=== PATIENT | female | born 1935 | race Caucasian/White ===

== ENCOUNTER 2016-08-17 10:39 | Emergency (ER) | payer OTHER, BC ==
[~2016-08-17 10:39] MED LIST: ASPIRIN81 M1; ASPIRIN81 M2 PO; BORIC ACID; CALCIUM 600 MG1 TA3 PO; CALCIUM 600-D T1 TAB PO; CENTRUM SILVER PO; CENTRUM SILVER1 EAC1 PO; COLESTID PO; COZAAR25 MG PO; DIOVAN80 M1 PO; FLAGYL PO; HYDROCHLOROTH12.5 M1 PO; K-DUR10 MEQ PO; KCL PO; LASIX20 MG PO; LEVOTHROID112 MCG PO; NASONEB NASAL1 EACH; NASONEX17 GM; PREMARIN VAG CR45 GM VAG; PROAIR HFA8.5 GM; PROAIR HFA8.5 GM INH; SINGULAIR PO; SPIRIVA18 MCG INH; SYMBICORT80 INH; SYNTHROID112 MCG PO; SYNTHROID125 PO; [UNRECOGNIZED DRUG - OTHER]
[2016-08-17 12:06] LABS: URINE APPEARANCE CLOUDY; URINE BILIRUBIN NEG (NEG); URINE BLOOD 2+ (NEG); URINE COLOR YELLOW; URINE GLUCOSE NEG (NEG); URINE KETONE NEG (NEG); URINE LEUKOCYTE ESTERASE 3+ (NEG); URINE NITRATE NEG (NEG); URINE PROTEIN TRACE (NEG); URINE SPECIFIC GRAVITY 1.008 (1.003-1.035); URINE UROBILINOGEN 0.2 MG/DL (NEG)
[2016-08-17 12:08] LABS: CULTURE INDICATED? YES; URINE BACTERIA AUWI 2+ (NEGATIVE); URINE SQUAMOUS EPITHELIAL CELL NONE SEEN /[HPF]; UWBCS1 AUWI 200-300 (0-5)
[2016-08-17 12:11] LABS: URINE SOURCE CATH
== END 2016-08-17 12:41 | disposition home or self-care (01) ==
LOC: CED 10:39
PROVIDERS: Emergency Medicine
DX: N30.00 Acute cystitis without hematuria (principal); E03.9 Hypothyroidism, unspecified; J44.9 Chronic obstructive pulmonary disease, unspecified; I51.9 Heart disease, unspecified; Z79.82 Long term (current) use of aspirin; Z79.899 Other long term (current) drug therapy
CPT/HCPCS: 81003; 87086; 99283

== ENCOUNTER 2016-08-20 08:46 | Observation (INO) | payer MEDICARE, BC ==
--- NOTE | ~2016-08-20 | DS ---
Unit #: [id number] #: [id number] Patient: DAPHNEY HANCOCK [id number] [address] [address] [id number] I MR#: [id number] NAME: DAPHNEY HANCOCK. ROOM: 331 Age: 81 Sex: F Admission Date: 08/20/2016 : 1935 Discharge Date: 08/22/2016 Attending Physician: Jyoti Roman M.D. Primary Care Physician: Cintia Guy M.D. DISCHARGE SUMMARY DISCHARGE DIAGNOSES 1. Change in mental status secondary to toxic metabolic encephalopathy with urinary tract infection. Also, likely Alzheimer dementia. 2. Urinary tract infection. Culture shows contamination. 3. Hypokalemia. 4. Hypertension. 5. Chronic obstructive pulmonary disease, stable. 6. Obstructive sleep apnea. Not using CPAP. 7. Hypothyroidism. 8. History of mitral valve problems. 9. Glaucoma. 10. Likely Alzheimer dementia. 11. Mild hyponatremia secondary to hypovolemia. CONSULTANTS Dr. Calderon. PROCEDURES None. DIAGNOSTIC DATA IMAGING: Chest x-ray two views show no active disease. CT of the head shows no acute changes. Volume loss. Chronic small vessel disease present. LABORATORY: Urine culture is growing contamination only. Magnesium 1.9, vitamin B12 475, folate 23.2. Urine culture negative from 08/19/2016. ALLERGIES No known drug allergies. DISCHARGE MEDICATIONS 1. Tobramycin 3 drops t.i.d. 2. Dexamethasone 3 drops t.i.d. 3. Colestid 2 g in the morning at 9 o'clock. 4. Colestid 1 g in the evening. Home medication. 5. Estradiol applied vaginally Thursday, Thursday and Thursday and at bedtime. 6. Cozaar 50 mg p.o. daily. 7. Potassium 10 mEq p.o. b.i.d. 8. Synthroid 125 mcg p.o. daily. 9. Levaquin 500 mg p.o. daily for 3 days. Unit #: [id number] #: [id number] Patient: DAPHNEY HANCOCK HOSPITAL COURSE The patient is an 81-year-old admitted because of change in mental status. Change in mental status: Secondary to toxic metabolic encephalopathy from urinary tract infection. Also, the patient might likely have Alzheimer dementia and also from mild dehydration. Urinary tract infection: Started on Rocephin. The patient's culture shows contamination because of systemic involvement. I am going to give her antibiotic, Levaquin, for 3 days. She did receive Macrobid at home by her family doctor. Mild dehydration: The patient received IV fluids. Mild hypovolemic hyponatremia: Stable. Hypokalemia: Replaced with p.o. potassium. Continue potassium at home. Status post fall: The patient was seen by physical therapy and occupational therapy. They recommend rehab. exhibitions and collections manager has tried they denied her. Currently she is ambulating in the hallway. The patient will be discharged with home health and physical therapy at home. Hypothyroidism: Continue with home medications. Likely Alzheimer dementia: The patient was seen by Dr. Calderon. He recommended outpatient followup by primary care physician. DISPOSITION The patient will be discharged home with home health. FOLLOWUP Follow up with primary care physician in one week time for urinary tract infection and Alzheimer dementia. Dictated by... Kyung Hull/caleb TD: 08/22/2016 12:11 JOB #: [id number] CC: Cintia Guy M.D. DISCHARGE SUMMARY Page 1 of 1 X Jyoti Roman MD X DISCHARGE SUMMARY
--- NOTE | ~2016-08-20 | EKG ---
PATIENT: DAPHNEY HANCOCK UNIT #: [id number] Ventricular Rate: 73 BPM Atrial Rate: 73 BPM P-R Interval: 194 ms QRS Duration: 78 ms Q-T Interval: 390 ms QTC Calculation(Bezet): 429 ms P [place]: 65 degrees Calculated R [place]: -37 degrees Calculated T [place]: -19 degrees Diagnosis Line: Normal sinus rhythm with sinus arrhythmia Diagnosis Line: Left axis deviation Diagnosis Line: Low voltage QRS Diagnosis Line: Abnormal ECG Diagnosis Line: When compared with ECG of 19-APR-2013 20:47, Diagnosis Line: Nonspecific T wave abnormality no longer evident Diagnosis Line: in Anterior leads Diagnosis Line: Confirmed by ANABEL PERRY MD ([id number]) on Diagnosis Line: 08/20/2016 11:12:08 AM INTERPRETING : DOMINIQUE
--- NOTE | ~2016-08-20 | HP ---
Unit #: [id number] #: [id number] Patient: DAPHNEY HANCOCK [id number] [address] [address] [id number] I MR#: [id number] NAME: DAPHNEY HANCOCK. ROOM: 17301 Age: 81 Sex: F Admission Date: 08/20/2016 : 1935 Attending Physician: Jia Granados M.D. Primary Care Physician: Cintia Guy M.D. HISTORY AND PHYSICAL CHIEF COMPLAINT Altered mental status. HISTORY OF PRESENT ILLNESS Ms. Hancock is an 81-year-old white female with known COPD, obstructive sleep apnea, and hypertension, who presents with altered mental status. Patient states she is not sure why she is here. She was brought by her son for worsening confusion. Patient was apparently here on August 17 for evaluation of a urinary tract infection for which she was discharged home on Macrobid. However, the patient does not remember any of those events. The son states that she called him at 1 a.m., and he told her to go back to sleep. However, this morning he states that she normally calls him, but when she did not call, he went over to her house and found her laying on the floor. She is unsure the events from the overnight hours. She does not remember falling. Patient's son states that he did not see any bruises, and she did not complain of any pain when he found her. She is supposed to ambulate with the use of a walker which she states she has been doing. Patient currently lives alone. Patient currently has no complaints. She denies any chest pain or shortness of breath. She is wanting to go home and does not understand why she needs to stay. The son states that her only other change in her medications aside from the addition of Macrobid was that her Synthroid had been recently decreased by her primary care physician. PAST MEDICAL HISTORY 1. Hypertension. 2. Chronic obstructive pulmonary disease. 3. Obstructive sleep apnea for which she is not using her CPAP machine. 4. Hypothyroidism. 5. Mitral valve problems. 6. Glaucoma. 7. Cholecystectomy. 8. Bilateral hernia repair. 9. Left total knee done in 2009. 10. Skin graft to a rectal ulcer. 11. Tubes placed in her ears. 12. Tonsillectomy. 13. Right breast biopsy. ALLERGIES Amoxicillin causes nausea. MEDICATIONS Unit #: [id number] #: [id number] Patient: DAPHNEY HANCOCK 1. Dexamethasone eyedrops 3 times daily. 2. Tobramycin eyedrops 3 drops 3 times daily. 3. Synthroid 125 mcg p.o. daily. 4. Cozaar 50 mg p.o. daily. 5. Potassium chloride 10 mEq p.o. b.i.d. 6. Lasix 20 mg p.o. b.i.d. 7. Estrace vaginally Thursday/Thursday/Thursday. 8. She recently was started on Macrobid for a presumed urinary tract infection. FAMILY HISTORY None per the son. SOCIAL HISTORY She lives alone. No tobacco, alcohol, or drug use. REVIEW OF SYSTEMS CONSTITUTIONAL: She denies any fevers, chills, nausea, or vomiting. HEENT: She denies any current blurry vision, though she wears eyeglasses. She currently does not have her hearing aids in and does have some hearing difficulties. No dysphagia or rhinorrhea. PULMONARY: She denies any dyspnea. No hemoptysis or cough. CARDIOVASCULAR: No chest pain or palpitations. She denies any swelling in her lower extremities. GASTROINTESTINAL: No problems with her bowels. No bleeding from her rectum. GENITOURINARY: No dysuria or hematuria. MUSCULOSKELETAL: Again, she uses a walker to ambulate. ENDOCRINE: She does have thyroid issues with hypothyroidism but no known diabetes and no adrenal abnormalities. HEMATOLOGIC: No known bleeding or bruising abnormalities. NEUROLOGIC: No previously diagnosed neurologic issues including no seizure disorder. She has no one-sided weakness. PHYSICAL EXAMINATION VITAL SIGNS: Temperature is 97.8, pulse is 74, respiratory rate is 16, blood pressure is 102/68, and she is 99% on room air. GENERAL APPEARANCE: She is an 81-year-old white female who is awake. She is alert and answers my questions appropriately. She is in no acute distress. HEENT: Normocephalic and atraumatic. Equal ocular movements are intact. Pupils are equal, round, and reactive to light and accommodation. She is wearing eyeglasses. She has dry mucous membranes. NECK: Supple. No JVD or bruits. CHEST: Clear to auscultation bilaterally with no wheezes, rhonchi, or crackles. CARDIOVASCULAR: S1 and S2 is normal. She has a regular rate and rhythm. ABDOMEN: Soft, nontender, and nondistended, with positive bowel sounds. EXTREMITIES: She has 1+ edema. MUSCULOSKELETAL: She moves all four extremities without difficulty. She has equal tank filler strength. NEUROLOGICALLY: She is actually oriented to person and place. She is oriented to the date and to the day of the week. However, she is not oriented to year. Again, she follows commands. Her sensory and motor appear to be intact. SKIN: She has no visible rashes or lesions. DIAGNOSTIC STUDIES Unit #: [id number] #: [id number] Patient: DAPHNEY HANCOCK LABORATORY: Sodium 133, potassium 3.6, chloride 102, bicarb 28, BUN and creatinine 15 and 0.9, glucose 95, calcium 9.3, total protein 6.5, albumin 4, total bilirubin 0.7, AST 24, ALT 16, and alkaline phosphatase is 43. White blood cell count is 6, hemoglobin and hematocrit 11.6 and 35.9, platelet count 246,000 neutrophils 70, and lymphocytes are 18%. Of note, she did have a urinalysis from August 17 that showed 3+ leukocyte esterase, trace protein, 0.2 urobilinogen, 2+ blood, and 200-300 whites; however, the culture from that was negative. IMAGING: She had a head CT done today that showed small vessel changes but no acute abnormalities. IMPRESSION Ms. Hancock is an 81-year-old white female with chronic obstructive pulmonary disease, hypertension, and obstructive sleep apnea, who presents with altered mental status. PLAN 1. Altered mental status: This could be due to acute metabolic encephalopathy from mild dehydration and her recent urinary tract infection. However, more likely, patient has undiagnosed dementia that is worsening. The family is requesting neurologic evaluation, and I have spoken to the neurology nurse practitioner regarding this case. I did advise the family that during this observation period, we can only rule out causes that are reversible, and that we may not be able to fully establish that she has dementia prior to her discharge. At this point, will go ahead and check labs. Will recheck her urinalysis and go ahead and check a chest x-ray, though she is not having any pulmonary issues at this time just to make sure she does not have any underlying infection. Will also await Neurology's evaluation. 2. Recent urinary tract infection: Again, will recheck her urinalysis and send for culture if necessary. She has taken a three-day course of Macrobid for a presumed urinary tract infection, though her urine culture from August 17 was negative. 3. Status post fall: Will have Physical Therapy and Occupational Therapy evaluate her. 4. Chronic obstructive pulmonary disease: Will continue to monitor. Will start nebulizers. She is not having any active pulmonary issues at this present time. However, given her altered mental status, will go ahead and check a chest x-ray. 5. Hypothyroidism: Will continue her home medication and check her TSH. 6. Hypertension: Will continue her home medications. 7. Hyponatremia: This could be due to mild dehydration. Will gently hydrate for now. 8. Code status: The patient is unsure what her code status is. Therefore, at this time, until they can clarify, the patient is a Full Code. 1. Dictated by Kyung Dahl TD: 08/20/2016 14:06 JOB #: [id number] Unit #: [id number] #: [id number] Patient: DAPHNEY HANCOCK HISTORY AND PHYSICAL Page 1 of 1 X Jia Granados X HISTORY AND PHYSICAL
--- NOTE | ~2016-08-20 | DS ---
Unit #: [id number] #: [id number] Patient: DAPHNEY HANCOCK [id number] [address] [address] [id number] I MR#: [id number] NAME: DAPHNEY HANCOCK ROOM: 331 Age: 81 Sex: F Admission Date: 08/20/2016 : 1935 Discharge Date: 08/22/2016 Attending Physician: Jyoti Roman M.D. Primary Care Physician: Cintia Guy M.D. DISCHARGE SUMMARY ADDENDUM I discussed with the patient case coordinator. According to her, the patient has skilled rehab bed at [facility], so the patient will be discharged to rehab. The son wants her to go to rehab. Dictated by... Kyung Hull/caleb TD: 08/22/2016 15:00 JOB #: [id number] CC: Cintia Guy M.D. DISCHARGE SUMMARY Page 1 of 1 X Jyoti Roman MD X DISCHARGE SUMMARY
--- NOTE | ~2016-08-20 | CT71 ---
[facility] A Service of [facility] RADIOLOGY TEXT RESULTS PATIENT: DAPHNEY HANCOCK LOCATION: [facility] 331-01 : [birth year] UNIT #: [id number] AGE: [address]: Jyoti Roman MD SEX: F ORDER DR: [id number] [facility] [address] [facility]. [place], [place] [address] [id number] MR#: [id number] Acc #: [id number] NAME: DAPHNEY HANCOCK. : 1935 SEX: F STUDY DATE/TIME: 08/20/2016 9:46 UNIT: DIPAK ROOM: STUDY DESCRIPTION: CT Head Wo Contrast Attending Physician: Reggie Kent Ordering Physician: Chico Moreno M.D. Primary Care Physician: Cintia Guy M.D. MEDICAL IMAGING REPORT This report is preliminary unless electronic signature is present EXAM Head CT no contrast 08/20/2016 PROCEDURE Axial unenhanced head CT. This CT exam was performed with one or more of the following radiation dose reduction techniques: automatic exposure control, adjustment of mA and/or kV according to patient size, and iterative reconstruction. COMPARISON Brain MRI dated 12/06/2013 HISTORY Three-day history of disorientation and worsening confusion. FINDINGS There is no intracranial hemorrhage or mass. There is volume loss but no hydrocephalus or extraaxial fluid collection and there is mild nonspecific white matter change. There are intracranial atherosclerotic vascular calcifications and there has been left mastoidectomy, but the skull base and calvarium are otherwise normal. IMPRESSION 1. Volume loss and small vessel change and not exceptional for age, no convincing acute abnormality. 2. Prior left mastoidectomy. Dictated by... Roshan Ohara M.D. THIS IS AN ELECTRONICALLY VERIFIED REPORT Roshan Ohara M.D. at 08/22/2016 5:32 PM TEV/to [facility] A Service of [facility] RADIOLOGY TEXT RESULTS PATIENT: DAPHNEY HANCOCK LOCATION: [facility] 331- : 33 UNIT #: [id number] AGE: [address]: Jyoti Roman MD SEX: F ORDER DR: TD: 08/20/2016 11:35 JOB #: [id number] MEDICAL IMAGING REPORT Page 1 of 1 COPY
--- NOTE | ~2016-08-20 | CR63 ---
[facility] A Service of [facility] RADIOLOGY TEXT RESULTS PATIENT: DAPHNEY HANCOCK LOCATION: [facility] 331- : 33 UNIT #: [id number] AGE: [address]: Jyoti Roman MD SEX: F ORDER DR: [id number] [facility] [address] [facility] [place], [place] [address] [id number] I MR#: [id number] Acc #: [id number] NAME: DAPHNEY HANCOCK. : 1935 SEX: F STUDY DATE/TIME: 08/20/2016 16:27 UNIT: [address] ROOM: [facility] STUDY DESCRIPTION: CR Chest 2 View Attending Physician: Jia Granados M.D. Ordering Physician: Jia Granados M.D. Primary Care Physician: Cintia Guy M.D. MEDICAL IMAGING REPORT This report is preliminary unless electronic signature is present EXAM AP lateral chest INDICATIONS Altered mental status, shortness of breath and weakness for 3 days. COMPARISON 06/02/2014 FINDINGS There is no acute infiltrate. There is minimal linear atelectasis or scar in the left mid zone. Heart size upper normal. Atherosclerotic calcification aorta. There is a old chronic compression deformity of a lower thoracic vertebral body. IMPRESSION No active disease. Dictated by... Adam Cheng M.D. THIS IS AN ELECTRONICALLY VERIFIED REPORT Adam Cheng M.D. at 08/21/2016 7:24 PM ARS/gena TD: 08/20/2016 18:45 JOB #: [id number] MEDICAL IMAGING REPORT Page 1 of 1 COPY
--- NOTE | ~2016-08-20 | CO ---
Unit #: [id number] #: [id number] Patient: DAPHNEY HANCOCK [id number] [facility] [address] [facility]. [place], [place] [address] [id number] Alon MR#: [id number] NAME: DAPHNEY HANCOCK. ROOM: 331 Age: 81 Sex: F Admission Date: 08/20/2016 : 1935 Attending Physician: Jyoti Roman M.D. Primary Care Physician: Cintia Guy M.D. Consultation Date: 08/20/2016 CONSULTATION REPORT PRIMARY CARE PHYSICIAN Cintia Guy M.D. REASON FOR CONSULTATION Evaluation for possible dementia. PATIENT IDENTIFICATION This is an 81-year-old, right-handed, white female, who was evaluated in room 331 at [facility]. SOURCE OF INFORMATION The patient and evaluation done by admitting team and my discussion with the patient's son and [id number]. PROBLEM LIST 1. Hypertension. 2. COPD. 3. Obstructive sleep apnea. She is not using CPAP machine. 4. Hypothyroidism. 5. Mitral valve problem. 6. Glaucoma. 7. Cholecystectomy. 8. Bilateral hernia repair. 9. Left knee surgery. 10. Skin graft. 11. Left total knee done in 2009. 12. Tubes placed in her ears. 13. Tonsillectomy. 14. Right breast biopsy and I believe she has had some sort of mastoid surgery. HISTORY OF PRESENT ILLNESS This is an 81-year-old, right-handed, white female, with known medical issues and she apparently was seen earlier on 08/17/2016 and diagnosis of possible UTI. She was started on antibiotics and sent home, but she has not been doing well. She has more confusion. She asked her son yesterday for medications and what she is taking and all that and he told her and then he went back to see her and she still had not taken the medication and was asking him what medication was she on. She is much better right now, but still like pleasantly confused. Looking at the history, she has been doing this for about a year or so and the family wanted to know whether she has dementia or not. Unit #: [id number] #: [id number] Patient: KARISSA,DAPHNEY M There is nothing suggesting focal abnormalities. There is no meningitis like symptoms. No seizures. No migraines. No TIAs or stroke-like issues. Head CT was okay and her prior MRI done in 2013 showed atrophy. She does have UTI that is being treated. She was started on Macrobid. PAST MEDICAL HISTORY As discussed above. PAST SURGICAL HISTORY As discussed above. ALLERGIES Amoxicillin causes nausea. HOME MEDICATIONS Dexamethasone eye drops t.i.d.; tobramycin eye drops, 3 drops t.i.d.; Synthroid 125 mcg daily, Cozaar 50 mg p.o. daily, potassium chloride 10 mEq b.i.d., Lasix 20 mg p.o. b.i.d., Estrace vaginally Thursday, Thursday, and Thursday. She was started on Macrobid. FAMILY HISTORY No primary neurologic issue as per the patient's son. SOCIAL HISTORY The patient lives alone, quite independent. I believe she is using a walker. No tobacco, alcohol, or drug use. REVIEW OF SYSTEMS CONSTITUTIONAL: The patient denies any headaches, double vision, earache, runny nose, or sore throat. She denies any febrile type issues. She denies any speech problem. NECK: No neck pain. CHEST: No chest pain. RESPIRATORY: No shortness of air. GI: No nausea, vomiting, diarrhea, or constipation. : No genitourinary symptoms. EXTREMITIES: No extremity problems. BACK: No back problems. PSYCHIATRIC: Psychotic issues questionable. NEUROLOGIC: Neurologic issues; some memory problems and confusion. No other hematologic, dermatologic, or endocrine problems known to me. PHYSICAL EXAMINATION VITAL SIGNS: Temperature 98.3, pulse 76, respirations 18, blood pressure 115/75. No pain was reported. O2 sats were 95% to 99%. Weight of 134 pounds. BMI was 23. T-max was 98.3. NEUROLOGIC: The patient is awake. She is alert. She knows she is in the hospital. She thinks this is 04/08. She can name. She can follow commands. No right or left confusion. No finger agnosia. She is a bit hard of hearing. Cranial examination demonstrated responds to threats in all prieto. Eye movements are conjugate. I did not see any ptosis. I did not see any nystagmus. Extraocular movements are intact. Sensation on the face and scalp are normal. Strength of muscles of facial expression normal. Unit #: [id number] #: [id number] Patient: DAPHNEY HANCOCK Hearing seemed to be intact bilaterally. Tongue was midline. Uvula was midline. Palate elevations were normal. Head turning and shoulder shrugs were unremarkable. Motor examination demonstrated normal bulk, tone. Strength was essentially 5-/5. No pronator drift or fine motor movement abnormality was seen. Sensory examination intact for soft touch and pain sensation. No extinction was seen. Romberg was not evaluated. Gait examination was deferred. Coordination was normal for askxvz-vq-sgiy-to-finger. DIAGNOSTIC STUDIES LABORATORY RESULTS: Random sodium was 133. TSH was 1.25. White count was 6.0, H and H of 11.6 and 35.9, platelet count was 246. Urinalysis showed leukocyte esterase 2+, nitrites positive, protein 1+, 50 to 100 wbc's. IMAGING STUDIES: CT head showed atrophy. IMPRESSION This is a very interesting 81-year-old female with mental status changes, likely delirium. I had a very detailed discussion with the patient and her son and [id number]. This is delirium and she does have urinary tract infection that is most common cause. I am not really arguing that she does not have dementia and there is a possibility that she has dementia, but in an acute situation we should wait to see how she does with infection treatment and my recommendation is; 1. Treat the infection. 2. Look for common causes like B12 deficiency, etc. 3. Short-term placement and re-evaluation if she does not improve, then as the diagnoses based on clinical exams or neuropsych testing to rule in the possibility of dementia. Also that she should be seen at her best state. Even at that time, consider problems and treatment accordingly, nothing else to suggest strokes or TIAs or seizures. So, supportive care and call me for any other questions, issues, or concerns and they agree with the plan. Dictated by... Kyung Graff/aurelio TD: 08/22/2016 03:27 JOB #: [id number] Unit #: [id number] #: [id number] Patient: DAPHNEY HANCOCK CONSULTATION REPORT Page 1 of 1 X Jasiel Calderon MD CONSULTATION REPORT
[2016-08-20 09:45] LABS: BASOPHIL% 0.7 % (0-2.5); EOSINOPHIL# 0.1 X10e3 (0-0.7); EOSINOPHIL% 0.9 % (0.0-7.0); HEMATOCRIT 35.9 % (35.0-45.0); HEMOGLOBIN 11.6 gm/dL (12.0-16.0); LYMPHOCYTE# 1.1 X10e3 (1.0-3.5); LYMPHOCYTE% 17.5 % (17.0-45.0); MEAN CELL VOLUME 85.9 FL (83-96); MEAN CORPUSCULAR HEMOGLOBIN 27.8 PG (28-34); MEAN CORPUSCULAR HGB CONC 32.3 g/dL (30-36); MEAN PLATELET VOLUME 6.7 FL (6.5-11.5); MONOCYTE# 0.6 X10e3 (0-1.0); MONOCYTE% 10.6 % (3.0-12.0); NEUTROPHIL# 4.2 X10e3 (1.5-7.1); NEUTROPHIL% 70.3 % (40-75); PLATELET COUNT 246 X10e3 (140-420); RED BLOOD COUNT 4.17 X10e (3.90-5.30); RED CELL DISTRIBUTION WIDTH 14.1 % (11.0-15.5)
[2016-08-20 09:49] LABS: DIFF IND NO
[2016-08-20 10:16] LABS: BILIRUBIN, DIRECT 0.1 mg/dL (0.0-0.2); BILIRUBIN,INDIRECT 0.6 mg/dL (0.0-0.9); BILIRUBIN,TOTAL 0.7 mg/dL (0.2-2.0); BUN/CREATININE RATIO 16.66; CALCIUM SERUM 9.3 mg/dL (8.4-10.2); CREATININE SERUM 0.9 mg/dL (0.6-1.4); GLOM FILT RATE Estimated 59.2 mL/min (>60); POTASSIUM 3.6 mmol/L (3.5-5.1); PROTEIN TOTAL SERUM 6.5 g/dL (6.0-8.3)
[2016-08-20] MEDS ORDERED: MACROBID100 M1 PO (10:41)
[2016-08-20] MEDS ORDERED: PATIENT'S PHARMACY (10:41)
[2016-08-20] MEDS ORDERED: DEXAMETHASO1 MG/1 ML (10:42)
[2016-08-20] MEDS ORDERED: SYNTHROID PO (10:43)
[2016-08-20] MEDS ORDERED: TOBRAMYCIN5 ML (10:43)
[2016-08-20] MEDS ORDERED: COZAAR PO (10:43)
[2016-08-20] MEDS ORDERED: KCL PO (10:44)
[2016-08-20] MEDS ORDERED: LASIX20 MG PO (10:44)
[2016-08-20] MEDS ORDERED: ESTRACE42.5 GM VAG (10:45)
[2016-08-20 12:44] LABS: URINE APPEARANCE CLEAR; URINE BILIRUBIN NEG (NEG); URINE BLOOD 1+ (NEG); URINE COLOR DK YELLOW; URINE GLUCOSE NEG (NEG); URINE KETONE TRACE (NEG); URINE LEUKOCYTE ESTERASE 2+ (NEG); URINE NITRATE POS (NEG); URINE PH 6.5 (5-8); URINE PROTEIN 1+ (NEG); URINE SPECIFIC GRAVITY 1.012 (1.003-1.035)
[2016-08-20 12:48] LABS: URINE BACTERIA AUWI NEG (NEGATIVE); URINE SQUAMOUS EPITHELIAL CELL OCC /[HPF]; UWBCS1 AUWI 50-100 (0-5)
[2016-08-21 05:32] LABS: HEMATOCRIT 37.7 % (35.0-45.0); HEMOGLOBIN 12.1 gm/dL (12.0-16.0); MEAN CELL VOLUME 87.1 FL (83-96); MEAN CORPUSCULAR HEMOGLOBIN 27.9 PG (28-34); MEAN PLATELET VOLUME 7.2 FL (6.5-11.5); RED BLOOD COUNT 4.33 X10e (3.90-5.30); RED CELL DISTRIBUTION WIDTH 14.5 % (11.0-15.5); WHITE BLOOD COUNT 5.7 X10e3 (4.0-10.5)
[2016-08-21 06:32] LABS: FOLATE (FOLIC ACID) 23.2 ng/mL (>5.8)
[2016-08-21 06:48] LABS: BUN/CREATININE RATIO 13.75; CALCIUM SERUM 8.7 mg/dL (8.4-10.2); CREATININE SERUM 0.8 mg/dL (0.6-1.4); GLOM FILT RATE Estimated 68.2 mL/min (>60)
[2016-08-22 14:58] LABS: HEMATOCRIT 37.5 % (35.0-45.0); MEAN CELL VOLUME 87.2 FL (83-96); MEAN CORPUSCULAR HEMOGLOBIN 27.8 PG (28-34); MEAN CORPUSCULAR HGB CONC 31.9 g/dL (30-36); MEAN PLATELET VOLUME 7.2 FL (6.5-11.5); RED BLOOD COUNT 4.3 X10e (3.90-5.30); RED CELL DISTRIBUTION WIDTH 14.7 % (11.0-15.5)
[2016-08-22 15:25] LABS: BUN/CREATININE RATIO 12.85; CALCIUM SERUM 8.6 mg/dL (8.4-10.2); CREATININE SERUM 0.7 mg/dL (0.6-1.4); GLOM FILT RATE Estimated 80.1 mL/min (>60); POTASSIUM 3.7 mmol/L (3.5-5.1)
== END 2016-08-22 16:20 ==
LOC: CED 08:46 → CEDOF 11:01 → C3A PCU 11:01 → CED 11:37 → CEDOF 11:37 → C3A PCU 14:08
PROVIDERS: Emergency Medicine; Internal Medicine; Psychiatry & Neurology Neurology
DX: G92 Toxic encephalopathy (principal); R41.82 Altered mental status, unspecified; N39.0 Urinary tract infection, site not specified; G93.89 Other specified disorders of brain; E87.6 Hypokalemia; I10 Essential (primary) hypertension; J44.9 Chronic obstructive pulmonary disease, unspecified; G47.33 Obstructive sleep apnea (adult) (pediatric); E03.9 Hypothyroidism, unspecified; H40.9 Unspecified glaucoma; E86.1 Hypovolemia; E87.1 Hypo-osmolality and hyponatremia; Z79.899 Other long term (current) drug therapy; Z79.2 Long term (current) use of antibiotics; Z98.890 Other specified postprocedural states; Z90.49 Acquired absence of other specified parts of digestive tract; Z88.1 Allergy status to other antibiotic agents
CPT/HCPCS: 36415; 70450; 71020; 80048; 80076; 81003; 82607; 82746; 83735; 84443; 85025; 85027; 87086; 93005; 94760; 96361; 96372; 96374; 97116; 97162; 97166; 97530; 97535; 99285; G0378; G8978-GP; G8979-GP; G8980-GP; G8987-GO; G8988-GO; J0696; J1650; J1956